=== PATIENT | male | born 1945 | race Caucasian/White ===

== ENCOUNTER 2016-11-14 02:58 | Emergency (ER) | payer MEDICARE, OTHER ==
[2016-11-14] MEDS ORDERED: 0.9 % SODIUM CHLORIDE 1,000 ML IV ONE ×2 (03:23→04:02)
[2016-11-14] MEDS ORDERED: ONDANSETRON HCL/PF 4 MG/ 2ML VIAL ONE ×2 (03:23→04:39)
[2016-11-14] MEDS ORDERED: PROMETHAZINE HCL 25 MG/ML VIAL IM ONE (03:59)
[2016-11-14] MEDS ORDERED: ONDANSETRON HCL/PF 4 MG/ 2ML VIAL IVP ONE ×2 (04:00→04:50)
[2016-11-14 04:04] LABS: BASOPHILS % 0.3 (0.0-1.5); EOSINOPHILS % 0.9 % (0.0-6.8); MEAN CORPUSCULAR HEMOGLOBIN 29.9 pg (28.0-34.0); MEAN CORPUSCULAR VOLUME 93.8 fl (80.0-100.0); MONOCYTES % 5.1 % (0.0-11.0); NEUTROPHILS # 9.6 # k/uL (1.4-7.7)
[2016-11-14 04:24] LABS: eGFR (African) > 60; eGFR (Non-African) > 60
[2016-11-14] MEDS ORDERED: fentaNYL CITRATE/PF 100 MCG/ 2ML AMP ONE (04:40)
[2016-11-14] MEDS ORDERED: fentaNYL CITRATE/PF 100 MCG/ 2ML AMP IVP ONE (05:00)
--- NOTE | 2016-11-14 05:24 | Diagnostic Imaging Report ---
AIRAM COX (SEPIDEH) - ER [facility] [address] [facility] [address] [place], [place]. [address] Report Submission Date: Nov 14, 2016 5:22:54 AM CDT Patient Study Name: SUSAN CALL Date: Nov 14, 2016 4:52:43 AM CDT Modality Type: CT\SR Gender: M Description: CT ABD & PELVIS W/O CO : 45 Institution: [facility] Physician: AIRAM COX) - ER CT abdomen and pelvis without contrast History: Abdominal pain Technique: Images through the abdomen and pelvis were obtained without contrast. Findings: The lung bases are clear. The liver, spleen, pancreas, kidneys and adrenal glands are normal. There is no hydronephrosis, hydroureter or renal calculus. There is no biliary duct dilatation. A 4 mm gallstone may be present within the gallbladder. No free air or fluid is present. There are multiple significantly dilated, air and fluid filled small bowel loops. Distal small bowel and colon are not distended. Findings are consistent with high-grade small bowel obstruction. There are postoperative changes consistent with bilateral inguinal hernia repair. The patient is status post lumbosacral fusion. Impression: 1. High-grade small bowel obstruction. 2. Cholelithiasis. 3. Postoperative changes. Electronically signed on Nov 14, 2016 5:22:54 AM CDT by: Randell ARCE
--- NOTE | 2016-11-14 06:30 | ED Physician Documentation ---
Abdominal Pain - HISTORIAN Historian: patient, spouse - HPI Stated Complaint: Nausea/vomiting and gastric pain since 02:00 Chief Complaint: Abdominal Pain Onset: hours (199) Duration: constant, worse Timing: worse Context: denies: out of country travel, bad food, recent trauma Severity: severe Quality: pain Associated Symptoms: nausea, vomiting. denies: fever, chills, coffee ground emesis, diarrhea, bloody stools, sweating, chest pain, testicular pain, back pain Exacerbated by: nothing Relieved by: nothing Further Comments: yes (71 year old male patient presents with complaints of N/V and severe abdominal pain since 199, patient states he awoke with pain.) - ROS CONST: no problems GI/: none CVS/RESP: none EYES/ENT: none MS/SKIN/LYMPH: none NEURO/PSYCH: none - SOCIAL HX Smoking History: non-smoker - FAMILY HX Family History: kidney stones - PAST HX Past History: kidney stones, other (GERD, anxiety) Other History: hypertension Surgeries/Procedures: other (bilateral inguinal hernia repair) - REVIEWED ASSESSMENTS Nursing Assessment Reviewed: Yes Vitals Reviewed: Yes <AIRAM COX - Last Filed: 11/14/16 06:26> <Houston Reyes - Last Filed: 11/14/16 07:31> - PAST HX Home Medications: Ambulatory Orders Medication Instructions Recorded Propranolol HCl [Propranolol HCl 60 mg PO D 12/01/12 ER] Sumatriptan Succinate 100 mg PO PRN PRN 12/01/12 Topiramate 150 mg PO D 12/01/12 Aspirin [Loki] 81 mg PO D 11/14/16 Allergies/Adverse Reactions: Allergies Allergy/AdvReac Type Severity Reaction Status Date / Time No Known Allergies Allergy Verified 11/14/16 03:52 - VITAL SIGNS Vital Signs: Vital Signs Temp Pulse Resp BP Pulse Ox 97.3 F L 54 L 20 128/77 94 11/14/16 02:58 11/14/16 02:58 11/14/16 02:58 11/14/16 02:58 11/14/16 02:58 (AIRAM COX) (Houston Reyes) Progress <AIRAM COX - Last Filed: 11/14/16 06:26> <Houston Reyes - Last Filed: 11/14/16 07:31> - Progress Progress: Patient continuing to c/o nausea after zofran. Phenergan IM given. Patient continues to c/o pain, fentanyl IV given, will progress with CT abdomen. 0530 CT shows high grade SBO and Cholelithiasis. Patient resting quietly at this time Results discussed with patient and . Recommended transfer for surgical consult. Previous inguinal hernia repairs at [facility]. 0615 Call to [facility], will have to discuss with surgeon at shift change. NG placed and IV fluids started. Patient resting quietly. (AIRAM COX) ED Results Lab/Radiology <AIRAM COX - Last Filed: 11/14/16 06:26> <Houston Reyes - Last Filed: 11/14/16 07:31> - Lab Results Lab Results: Lab Results 11/14/16 11/14/16 04:00 04:00 WBC 11.99 K/ul K/ul (4.00-12.00) RBC 4.95 M/ul M/ul (3.90-5.20) Hgb 14.8 g/dL g/dL (12.0-18.0) Hct 46.4 % % (37.0-53.0) MCV 93.8 fl fl (80.0-100.0) MCH 29.9 pg pg (28.0-34.0) MCHC 31.9 g/dL g/dL (30.0-36.0) RDW 14.0 % % (11.3-14.3) Plt Count 252 K/mm3 K/mm3 (130-400) Neut % (Auto) 80.5 % H % (39.0-79.0) Lymph % (Auto) 12.2 % L % (16.0-50.0) [place] % (Auto) 5.1 % % (0.0-11.0) Eos % (Auto) 0.9 % % (0.0-6.8) Baso % (Auto) 0.3 (0.0-1.5) Neut # 9.6 # k/uL H # k/uL (1.4-7.7) Lymph # 1.5 # k/uL # k/uL (0.6-4.0) [place] # 0.6 # k/uL # k/uL (0.0-0.9) Eos # 0.1 # k/uL # k/uL (0.0-0.6) Baso # 0.0 # k/uL # k/uL (0.0-0.5) Reactive Lymphs % 1.0 % % (0.0-5.0) Reactive Lymphs # 0.1 # k/uL # k/uL (0.0-0.8) Sodium 140 mmol/L mmol/L (136-145) Potassium 4.2 mmol/L mmol/L (3.5-5.0) Chloride 106 mmol/L mmol/L (98-110) Carbon Dioxide 27 mmol/L mmol/L (20-32) BUN 20 mg/dL mg/dL (10-26) Creatinine 0.9 mg/dL mg/dL (0.4-1.5) Estimated Creat Clear 72 Est GFR ( Amer) > 60 (60 - ) Est GFR (Non-Af Amer) > 60 (60 - ) Glucose 156 mg/dL H mg/dL (70-99) Calcium 10.4 mg/dL mg/dL (8.5-10.5) Total Bilirubin 0.4 mg/dL mg/dL (0.2-1.2) AST 17 U/L U/L (0-41) ALT 14 U/L U/L (0-45) Alkaline Phosphatase 80 U/L U/L (46-116) Total Protein 6.9 g/dL g/dL (6.0-8.5) Albumin 5.0 g/dL g/dL (3.0-5.5) (AIRAM COX) (Houston Reyes) - Radiology Radiology Impressions: CT abdomen and pelvis without contrast History: Abdominal pain Technique: Images through the abdomen and pelvis were obtained without contrast. Findings: The lung bases are clear. The liver, spleen, pancreas, kidneys and adrenal glands are normal. There is no hydronephrosis, hydroureter or renal calculus. There is no biliary duct dilatation. A 4 mm gallstone may be present within the gallbladder. No free air or fluid is present. There are multiple significantly dilated, air and fluid filled small bowel loops. Distal small bowel and colon are not distended. Findings are consistent with high-grade small bowel obstruction. There are postoperative changes consistent with bilateral inguinal hernia repair. The patient is status post lumbosacral fusion. Impression: 1. High-grade small bowel obstruction. 2. Cholelithiasis. 3. Postoperative changes. Electronically signed on Nov 14, 2016 5:22:54 AM CDT by: Randell Byrd (AIRAM COX) - Orders Orders: ED Orders Category Date Time Status Insert NG tube 1T Care 11/14/16 06:55 Active Low Intermittent Suction 1T Care 11/14/16 06:[address] Saline Lock/IV NOW Care 11/14/16 04:[address] ABD & PELVIS W/O CON Stat Exams 11/14/16 Completed CBC/PLATELET/DIFF Stat Lab 11/14/16 04:00 Completed CMP Stat Lab 11/14/16 04:00 Completed 0.9 % Sodium Chloride [Normal Saline] 1,000 ml Med 11/14/16 03:23 Discontinued IV .STK-MED 0.9 % Sodium Chloride [Normal Saline] 1,000 ml Med 11/14/16 04:02 Discontinued IV Q1H Dextrose 5 %-0.45 % NaCl [D51/2Ns] 1,000 ml Med 11/14/16 07:00 Ordered IV Q10H Ondansetron HCl/Pf [Zofran 4 mg/2 ml] Med 11/14/16 03:23 Discontinued 4 mg .ROUTE .STK-MED ONE Ondansetron HCl/Pf [Zofran 4 mg/2 ml] Med 11/14/16 04:39 Discontinued 4 mg .ROUTE .STK-MED ONE Ondansetron HCl/Pf [Zofran 4 mg/2 ml] Med 11/14/16 04:00 Discontinued 4 mg IVP NOW ONE Ondansetron HCl/Pf [Zofran 4 mg/2 ml] Med 11/14/16 04:50 Discontinued 4 mg IVP NOW ONE Promethazine HCl [Phenergan] Med 11/14/16 03:59 Discontinued 25 mg IM NOW ONE fentaNYL CITRATE/PF [Duragesic] Med 11/14/16 04:40 Discontinued 100 mcg .ROUTE .STK-MED ONE fentaNYL CITRATE/PF [Duragesic] Med 11/14/16 05:00 Discontinued 50 mcg IVP NOW ONE (AIRAM COX) (Zolkowski,Houston S) Abdominal Pain Physical Exam - Physical Exam General Appearance: moderate distress EENT: eye inspection normal, LEONARD RESPIRATORY: no resp distress, chest non-tender, breath sounds normal CVS: reg rate & rhythm, heart sounds normal, equal pulses, no murmur, no gallop , PMI nml, no JVD, no friction rub, 24 ABDOMEN: soft, no organomegaly, no abdominal bruit, no distension, tenderness ( generalized), abnormal bowel sounds (hypoactive) SKIN: normal color, warm/dry, NR, INT, PAL, DR EXTREMITIES: non-tender, normal range of motion, no evidence of injury, no edema , J, DIE INSPECTOR NEURO: oriented X3, CN's nml as tested, motor nml, sensation nml <AIRAM COX - Last Filed: 11/14/16 06:26> Discharge <AIRAM COX - Last Filed: 11/14/16 06:26> Decision to Admit: NO Decision Time: 07:15 <Houston Reyes - Last Filed: 11/14/16 07:31> Clincal Impression: SBO (small bowel obstruction) Nausea & vomiting Qualifiers: Vomiting type: bilious vomiting Qualified Code(s): R11.14 - Bilious vomiting Referrals: Scottie Gonzalez MD [Primary Care Provider] - 2 Days Home Medications: Ambulatory Orders Propranolol HCl [Propranolol HCl ER] 60 mg PO D 12/01/12 Sumatriptan Succinate 100 mg PO PRN PRN 12/01/12 Topiramate 150 mg PO D 12/01/12 Aspirin [Loki] 81 mg PO D 11/14/16 Comments: Pt. transferred in stable condition via ground EMS to [facility] for SBO, accepted by Dr. Juarez. (Houston Reyes) Condition: Serious Disposition: XFER [facility]
[2016-11-14] MEDS ORDERED: DEXTROSE 5 %-0.45 % NACL 1,000 ML IV SCH (07:00)
[2016-11-14] MEDS ORDERED: DEXTROSE 5 %-0.45 % NACL 1,000 ML IV ONE (07:25)
[2016-11-14 07:37] VITALS: BP 134/73
== END 2016-11-14 07:30 | disposition short-term general hospital (02) ==
LOC: ED 02:58
DX: K56.60 Unspecified intestinal obstruction (principal)
CPT/HCPCS: 74176; 80053; 85025; J2405; J2550; J3010; J7030; 96361; 96374; 96375; 96376; 99284; S1016; S5010

== ENCOUNTER 2017-10-15 11:20 | Outpatient (CLI) | payer MEDICARE, OTHER ==
[2017-10-15 12:38] LABS: eGFR (African) > 60; eGFR (Non-African) > 60
== END 2017-10-15 13:46 ==
LOC: LAB 11:20
PROVIDERS: ATTEND Family Medicine
DX: E03.9 Hypothyroidism, unspecified (principal); E53.8 Deficiency of other specified B group vitamins
CPT/HCPCS: 36415; 80053; 80061; 82746; 84443